=== PATIENT | male | born 1975 | race Caucasian/White ===

== ENCOUNTER 2016-12-12 13:46 | Day surgery (SDC) | payer OTHER ==
[2016-12-12] VITALS (20 sets, daily range): BP systolic 111–145; BP diastolic 65–90; PULSE 72–98; RESP 16–25; Ht 180.3 cm; Wt 76.4 kg
[~2016-12-12] VITALS: Ht 180.3 cm; Wt 76.4 kg
[~2016-12-12 13:46] MED LIST: EPHEDrine SULFATE 50 MG/5 ML SYG ONE
[2016-12-12] MEDS ORDERED: LACTATED RINGER'S 1,000 ML IV* ONE (14:00)
[2016-12-12] MEDS ORDERED: LIDOCAINE 1% (MPF) 30 ML INJ ONE (14:56)
[2016-12-12] MEDS ORDERED: POLYMYXIN/BACITRACIN 1L IRRIG ONE (14:56)
[2016-12-12] MEDS ORDERED: BUPIVACAINE 0.5% (SDV) 30 ML INJ ONE (14:56)
[2016-12-12] MEDS ORDERED: LIDOCAINE 2% (SDV) 5 ML INJ ONE (15:02)
[2016-12-12] MEDS ORDERED: PROPOFOL 20 ML ONE (15:02)
--- NOTE | 2016-12-12 15:49 | HPN ---
Date/Time of Note Date/Time of Note DATE: 12/12/16 TIME: 15:49 Interval H&P Admission Note Pt. seen H&P reviewed: No system changes VAN ALLEN Dec 12, 2016 15:49
[2016-12-12] MEDS ORDERED: MEPERIDINE 100 MG INJ ONE (15:56)
[2016-12-12] MEDS ORDERED: CEFAZOLIN 1 GM INJ ONE (15:57)
[2016-12-12] MEDS ORDERED: VANCOMYCIN 1 GM INJ ONE (17:51)
[2016-12-12] MEDS ORDERED: ONDANSETRON 4 MG INJ ONE (18:02)
[2016-12-12] MEDS ORDERED: MEPERIDINE 25 MG INJ IV PRN (18:30)
[2016-12-12] MEDS ORDERED: hydrALAzine 20 MG INJ IV PRN (18:30)
[2016-12-12] MEDS ORDERED: FENTAnyl 50 MCG/ML VIAL IV PRN ×2 (18:30)
[2016-12-12] MEDS ORDERED: morphine (1 MG/ML) 10ML SYRINGE IV PRN ×2 (18:30)
[2016-12-12] MEDS ORDERED: LABETALOL HCL 20MG INJ IV PRN (18:30)
[2016-12-12] MEDS ORDERED: HYDROmorphONE (0.2 MG/ML) 10ML SYG IV PRN (18:30)
[2016-12-12] MEDS ORDERED: EPHEDrine SULFATE 50 MG/5 ML SYG IV PRN (18:30)
[2016-12-12] MEDS ORDERED: DIPHENHYDRAMINE 50 MG INJ IV PRN (18:30)
[2016-12-12] MEDS ORDERED: METOCLOPRAMIDE 10 MG INJ IV PRN (18:30)
[2016-12-12] MEDS ORDERED: MIDAZOLAM 1 MG/ML 2 ML INJ IV PRN (18:30)
[2016-12-12] MEDS: ONDANSETRON 4 MG INJ IV PRN ×2 (18:31→18:40)
[2016-12-12] MEDS: HYDROmorphONE (0.2 MG/ML) 10ML SYG IV PRN ×2 (18:39→18:49)
[2016-12-12] MEDS ORDERED: OXYCODONE/ACETAMINOPHEN (5/325) TAB PO PRN ×2 (19:00)
[2016-12-12] MEDS ORDERED: HYDROCODONE/APAP (5/325) TAB PO PRN (19:00)
--- NOTE | 2016-12-12 20:12 | OPR ---
DATE OF OPERATION: 12/12/2016 SURGEON: Van Coffey MD ANESTHESIA: General. PREOPERATIVE DIAGNOSIS: 1. Left distal radius fracture, intraarticular, greater than 3 fragments. 2. Left distal ulnar shaft fracture. 3. Left carpal tunnel syndrome. POSTOPERATIVE DIAGNOSIS: 1. Left distal radius fracture, intraarticular, greater than 3 fragments. 2. Left distal ulnar shaft fracture. 3. Left carpal tunnel syndrome. PROCEDURES: 1. Open reduction internal fixation of left distal radius fracture, intraarticular, greater than 3 fragments. 2. Open reduction internal fixation of left distal ulnar shaft fracture. 3. Open left carpal tunnel release. OPERATIVE FINDINGS: 1. Comminuted distal radius fracture, intraarticular. 2. Comminuted left distal ulna fracture. 3. Swelling within the carpal canal. INDICATION FOR PROCEDURE: This is a 41-year-old male with injury to the left wrist. He was seen in clinic and diagnosed with a distal radius and ulna fracture. Patient also noted intermittent numbn ess in his hand and persistent swelling and difficulty moving the digits. I discussed the options w ith the patient and he elected to proceed with surgical intervention, understanding the risks and be nefits. Given the persistent numbness in the left hand and persistent swelling, I felt it was best to also perform a carpal tunnel release at the same time as the fracture fixation. This will also m inimize the risk of postoperative carpal tunnel in the setting of a difficult fracture. DESCRIPTION OF PROCEDURE: The patient was seen in the preoperative area and all further questions w ere answered. Again, he gave informed consent understanding risks and benefits. He was taken to [facility] operative suite and placed in supine position. Ancef 2 grams was given, and the patient was place d under general anesthesia. Tourniquet was placed on the left upper extremity, and the left upper e xtremity was prepped with ChloraPrep stick and draped in usual sterile fashion. Esmarch bandage was used to exsanguinate the extremity and tourniquet inflated to 250 mmHg. Attention was first turned to the carpal tunnel release and a closed reduction was performed prior to starting the procedure. A modified volar Demetrio approach to the distal radius was utilized with sharp dissection carried tigre n through skin and subcutaneous tissue. The FCR sheath was incised along its radial border and the FCR tendon retracted ulnarly. The FCR subsheath was incised and the FPL tendon retracted ulnarly. The pronator quadratus was incised along its radial and distal borders using Bovie electrocautery. The fracture was identified and was reduced. A [employer] distal radius plate was applied to the vola r distal radius across the fracture site and a cortical screw was placed in the oblong hole. Three distal screws were placed, and x-ray imaging confirmed near anatomic alignment and appropriate hardw are positioning. Additional cortical and locking screws were placed proximally and distally. Atten tion was then turned to the distal ulna fracture and an ECU/FCU approach to the distal ulna was util ized with sharp dissection carried down through skin and subcutaneous tissue. Scissor dissection pr otected the dorsal sensory branch of the ulnar nerve and the interval between the ECU and FCU was in cised as well as the periosteum revealing the fracture site. The fracture was reduced and a [employer] s distal ulna plate was placed across the fracture site with 3 locking screws distally and cortical and locking screws proximally. X-ray imaging was taken in the end and showed near anatomic alignmen t and appropriate hardware position. Attention was then turned to the carpal tunnel release and a 2 cm incision at the base of the palm was utilized with sharp dissection carried down through skin an d subcutaneous tissue. The palmar aponeurosis was identified and was incised along its ulnar border . Retractors were deepened and the transverse carpal ligament was identified and was incised along its ulnar border, approximately 3 mm radial to the hook of the hamate. A Ragnell retractor was plac ed distally and the transverse carpal ligament was divided along its ulnar border under direct visua lization. Attention was turned proximally and the antebrachial fascia was divided off the transvers e carpal ligament. The ligament was divided along its ulnar border. All wounds were copiously irri gated with 1 liter of saline and 1 gram of vancomycin powder was placed into the wounds. The skin w as closed with 4-0 nylon. Xeroform was placed over the wounds followed by sterile gauze, Webril, an d a long arm splint with the forearm in neutral rotation. Tourniquet deflated after 104 minutes, an d the patient was awakened from anesthesia. He was taken to the postoperative suite in stable condi tion and tolerated procedure well without complication. SPECIMENS: None. ESTIMATED BLOOD LOSS: 5 mL. COUNTS: Sponge, instrument and needle counts correct. TOURNIQUET TIME: 104 minutes. FLUOROSCOPIC IMAGES: 23. CONDITION ON DISCHARGE: Stable. Dictated By: VAN PERDUE/MAYO Conf#: [id number] DID#: [id number]
--- NOTE | 2016-12-14 10:16 | RADRPT ---
PROCEDURE: Fluoroscopy CLINICAL INDICATION: XR Forearm Left TECHNIQUE: Less than 1 minute fluoroscopic time utilized by Dr. ALLEN for procedure. 2 spot images/sequences of are submitted. COMPARISON: None FINDINGS: Plate and screw fixation of the left distal radius and ulna is demonstrated. IMPRESSION: Fluoroscopy utilized by Dr. ALLEN for ORIF left distal forearm. Please see procedural report for complete details. RPTAT: QQ .Boris Finney MD, MD Date Time Electronically viewed and signed by .Boris Finney MD, on 12/14/2016 10:15 .L/
== END 2016-12-12 21:00 | disposition home or self-care (01) ==
LOC: SDS 13:46
PROVIDERS: ATTEND Orthopaedic Surgery Hand Surgery
DX: S52.572D Other intraarticular fracture of lower end of left radius, subsequent encounter for closed fracture with routine healing (principal); S52.612D Displaced fracture of left ulna styloid process, subsequent encounter for closed fracture with routine healing; X58.XXXD Exposure to other specified factors, subsequent encounter; G56.02 Carpal tunnel syndrome, left upper limb
CPT/HCPCS: 25609; 25652; 64721; 73090; J0690; J1170; J2175; J2250; J2405; J3370; Z7512; Z7610